=== PATIENT | male | born 1995 | race Caucasian/White ===

== ENCOUNTER 2018-06-15 02:01 | Inpatient (IN) ==
[2018-06-15] MEDS ORDERED: Aluminum/Magnesium/Simethacone Susp 30 ML UDC PO PRN (03:12)
[2018-06-15] MEDS ORDERED: Melatonin 5 MG Tablet PO PRN (03:12)
[2018-06-15] MEDS ORDERED: Benztropine Inj 2 MG/2 ML Ampul IM PRN (03:12)
[2018-06-15] MEDS ORDERED: Acetaminophen 325 MG Tablet PO PRN (03:12)
[2018-06-15] MEDS ORDERED: LORazepam 1 MG Tablet PO PRN (14:16)
[2018-06-15] MEDS: FLUoxetine 20 MG Capsule PO SCH (15:03)
--- NOTE | 2018-06-15 16:47 | XR ---
EXAM DATE: 06/15/2018 4:18 PM EDT AGE/SEX: 22 years / Male INDICATIONS: Cough and congestion. CLINICAL DATA: This is the patient's initial encounter. Patient reports that signs and symptoms have been present for 3 days and indicates a pain score of 0/10. MEDICAL/SURGICAL HISTORY: None. None. COMPARISON: No prior exams available for comparison. FINDINGS: Portable AP view of the chest demonstrates a normal-sized cardiac silhouette. No effusion, consolidat ion, or pneumothorax is identified. The bones and soft tissues demonstrate no acute finding. CONCLUSION: No acute cardiopulmonary abnormality is identified. Electronically signed by: Dada Link MD 06/15/2018 4:46 PM EDT
[2018-06-15] MEDS ORDERED: guaiFENesin/Codeine Syrup 200 MG/20 MG 10 ML UDC PO PRN (17:00)
--- NOTE | 2018-06-15 17:37 | P.CON ---
History of Present Illness Service: [facility] Consult date: 06/15/18 Requesting Physician: Ke Erazo Reason for Consult: Cough, runny nose Primary Care Provider: No Primary Care Physician Chief Complaint: Cough, runny nose History of Present Illness: Patient is a 22-year-old white with PMHx of ADHD, bipolar disorder, multiple psychiatric admissions, one previous suicide attempt, hypothyroidism, asthma as a child. Presented initially to [facility] emergency room for suicidal ideation. He was transferred here for inpatient psychiatric admission under [place] Act. Pt. voiced suicidal ideation with plans to buy a gun and shoot himself in the context of psychosocial stressors. Patient indicates that he is on medications at home, does not follow with psychiatry as outpatient. He is complaining of a stuffy nose, cough, no fever no chills. Indicates cough is dry, no sputum. Denies any wheezing. Indicates he had asthma as a child that resolved. No chest pain. Chest x-ray was ordered that did not reveal any acute findings. Laboratory workup is currently pending. Patient denies any history of tobacco abuse, uses marijuana occasionally but he has not used in the last 3 months. Hospitalist services are requested for medical management. Review of Systems All other systems reviewed negative except as stated in [facility] - Medical History Medical History: Medical History (Last Updated 06/15/18 @ 17:48 by ZORAN De La Paz) ADHD Asthma Bipolar disorder Depression Hypothyroid - Surgical History Surgical History: Surgical History (Last Updated 06/15/18 @ 17:48 by ZORAN De La Paz) No history of previous surgery - Family History Family History: Family History (Last Updated 06/15/18 @ 17:49 by ZORAN De La Paz) Mother Depression - Social History I have reviewed the patient's Social History: Yes - Tobacco History Second Hand Smoke Exposure: No Tobacco Use In Past 30 Days: No Smoking Status: Never smoker - Alcohol History How Often Do You Have a Drink Containing Alcohol: Monthly or less - Substance Use History Substance History: Past History (smokes marihuana occ. last time 3 months ago) - Travel History Recent Travel in the USA Within the Last 8 Weeks: No Recent Travel Out of the Country Within the Last 8 Weeks: No - Immunization History Tetanus Immunization: Unsure Hx Influenza Vaccine This Season: No Medications and Allergies Active Medications: Active Medications Acetaminophen (Tylenol) 650 mg PO Q4H PRN PRN Reason: Pain 1-5 or Temp >101F Al Hydrox/Mg Hydrox/Simethicone (Mag-Al Plus Susp Liq) 30 ml PO Q6H PRN PRN Reason: DYSPEPSIA Al Hydroxide/Mg Hydroxide (Milk Of Magnesia Liq) 30 ml PO Q12H PRN PRN Reason: Mild Constipation Benztropine Mesylate (Cogentin) 1 mg PO Q12H PRN PRN Reason: EXTRA PYRAMIDAL SYMPTOMS Benztropine Mesylate (Cogentin Inj) 1 mg IM Q12H PRN PRN Reason: EXTRA PYRAMIDAL SYMPTOMS Fluoxetine HCl (Prozac) 20 mg PO DAILY [facility] Last Admin: 06/15/18 15:03 Dose: 20 mg Guaifenesin/Codeine Phosphate (Robitussin Ac 200/20 Mg/10 Ml Liq) 10 ml PO Q4H PRN PRN Reason: COUGH Lorazepam (Ativan) 1 mg PO Q6H PRN PRN Reason: ANXIETY Nicotine (Habitrol 21 Mg Patch.24 Hr) 1 patch T-DERMAL DAILY PRN PRN Reason: Nicotine craving Olanzapine (Zyprexa Zydis Odt) 5 mg PO HS [facility]GRA Patch Removal (Remove Old Patch) 1 each T-DERMAL DAILY [facility] Last Admin: 06/15/18 10:37 Dose: Not Given Trazodone HCl (Desyrel) 50 mg PO HS PRN PRN Reason: INSOMNIA Allergies Allergy/AdvReac Type Severity Reaction Status Date / Time divalproex sodium AdvReac Lethargy Verified 06/15/18 03:54 [From [facility]] Physical Exam Vital signs: Vital Signs 06/15/18 02:55 Temperature 98.3 F Pulse Rate 100 H Respiratory Rate 18 Blood Pressure 100/59 L Pulse Oximetry 99 Intake & Output 06/14/18 06/15/18 06/15/18 18:59 06:59 18:59 Weight 70.8 kg Other: Weight On Admission 70.8 kg Narrative: GENERAL: Well-nourished, well-developed patient in no apparent distress. SKIN: Warm and dry. HEAD: Atraumatic. Normocephalic. EYES: Pupils equal and round. No scleral icterus. Mild conjunctival injection. ENT: No nasal bleeding or discharge. Mucous membranes moist. NECK: Trachea midline. No JVD. CARDIOVASCULAR: Regular rate and rhythm. RESPIRATORY: No accessory muscle use. Clear to auscultation. Breath sounds equal bilaterally. Dry cough, non productive GASTROINTESTINAL: Abdomen soft, non-tender, nondistended. Hepatic and splenic margins not palpable. MUSCULOSKELETAL: Extremities without clubbing, cyanosis, or edema. No obvious deformities. NEUROLOGICAL: Awake and alert. No obvious cranial nerve deficits. Motor grossly within normal limits. Five out of 5 muscle strength in the arms and legs. Normal speech. PSYCHIATRIC: depressed affect Assessment and Plan - Plan 22 year old male admitted to psych for suicidal ideation with plans to buy a gun. Complaining of runny nose, cough, no sputum. No fever, no chills. C/O runny nose, + cough, nasal pressure. Possible allergic rhinitis -Flonase 2 puffs daily -Robitussin PRN -Add Zyrtec 10 mg po daily -CXR reviewed by me, no acute findings -CBC and BMP pending Suicidal ideation Depression Bipolar disorder -psychiatry following, he has been started on treatment Hypothyroid -resume home meds when medications reconciled. Will follow up on labs. Plan of care discussed with RN, pt. Thank you for allowing to participate in the care of this patient.
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
[2018-06-15] MEDS ORDERED: traZODone 50 MG Tablet PO PRN (21:00)
[2018-06-16 08:49] LABS: Calcium 8.7 mg/dL (8.5-10.1); Carbon Dioxide 30.1 meq/L (21.0-32.0)
[2018-06-16 08:52] LABS: Chol/HDL Ratio 2.64 Ratio; HDL Cholesterol 41.2 mg/dL (40.0-60.0)
[2018-06-16] MEDS: FLUoxetine 20 MG Capsule PO SCH (09:24)
[2018-06-16 11:58] LABS: Hemoglobin A1c 5.4 % (4.3-6.0)
--- NOTE | 2018-06-16 14:59 | P.PNPSY ---
Subjective Remarks: Pt seen and discussed with staff. He was admitted for depression and SI. He remains depressed and yesterday SI persisted. He reports today that SI has remitted. Staff report that pt continues to irrationally blame himself for his girlfriend's miscarriage.He has been isolative to his room for most of the day. Mental Status Examination Appearance: Appropriate Consciousness: Alert Orientation: Person, Place, Date/Time Motor Activity: Normal gait Speech: Unremarkable Language: Adequate Fund of Knowledge: Inadequate Attention and Concentration: Adequate Memory: Unremarkable Mood: Sad Affect: Sad Thought Process & Associations: Intact, Linear Thought Content: Other (guilt) Hallucination Type: None Delusion Type: None Suicidal Ideation: No (denies today) Suicidal Plan: No Suicidal Intention: No Homicidal Ideation: No Homicidal Plan: No Homicidal Intention: No Insight: Fair Judgment: Impulsive Assessment and Plan - Assessment (1) Bipolar disorder with current episode depressed Code(s): F31.30 - Bipolar disorder, current episode depressed, mild or moderate severity, unspecified Status: Acute - Plan Plan: Continue current tx plan Justification for Continued Inpatient Stay: risk of decompensation (1) Bipolar disorder with current episode depressed Qualifiers: Current episode severity: severe Psychotic features: without psychotic features Qualified Code(s): F31.4 - Bipolar disorder, current episode depressed , severe, without psychotic features
--- NOTE | 2018-06-16 15:44 | P.PN ---
Subjective Interval history: follow up for cough, runny nose: pt. states he feels better, less congestion, cough and runny nose. No fever. No wheezing, no cp, no sob. Remains depressed. States hx of hypothyroid but has not taken thyroid replacement in 15 years. Doesn't follow with PCP as OP. Physical Exam Vital signs: Vital Signs 06/15/18 17:54 06/16/18 05:50 Temperature 98.6 F 97.6 F Pulse Rate 88 66 Respiratory Rate 18 16 Blood Pressure 109/53 L 108/55 L Pulse Oximetry 97 98 Narrative: GENERAL: Well-nourished, well-developed patient in no apparent distress. SKIN: Warm and dry. HEAD: Atraumatic. Normocephalic. EYES: Pupils equal and round. No scleral icterus. Mild conjunctival injection. ENT: No nasal bleeding or discharge. Mucous membranes moist. NECK: Trachea midline. No JVD. CARDIOVASCULAR: Regular rate and rhythm. RESPIRATORY: No accessory muscle use. Clear to auscultation. Breath sounds equal bilaterally. Dry cough, non productive GASTROINTESTINAL: Abdomen soft, non-tender, nondistended. Hepatic and splenic margins not palpable. MUSCULOSKELETAL: Extremities without clubbing, cyanosis, or edema. No obvious deformities. NEUROLOGICAL: Awake and alert. No obvious cranial nerve deficits. Motor grossly within normal limits. Five out of 5 muscle strength in the arms and legs. Normal speech. PSYCHIATRIC: depressed affect Results - Labs CBC & Chem 7: 06/16/18 06:50 Laboratory Results - last 24 hr 06/16/18 06/16/18 06/16/18 06:50 06:50 06:50 Sodium 143 Potassium 4.0 Chloride 107 Carbon Dioxide 30.1 Anion Gap 6 BUN 13 Creatinine 1.18 Estimated GFR 76 L Random Glucose 81 Hemoglobin A1c 5.4 Calcium 8.7 Triglycerides 59 Cholesterol 109 L LDL Cholesterol, Calc 56 HDL Cholesterol 41.2 Cholesterol/HDL Ratio 2.64 TSH 0.660 - Imaging Impressions Chest X-Ray 06/15/18 00:00 CONCLUSION: No acute cardiopulmonary abnormality is identified. Assessment and Plan - Plan 22 year old male admitted to psych for suicidal ideation with plans to buy a gun. Complaining of runny nose, cough, no sputum. No fever, no chills. C/O runny nose, + cough, nasal pressure. Possible allergic rhinitis -Flonase 2 puffs daily -Robitussin PRN -Zyrtec 10 mg po daily -CXR reviewed by me, no acute findings -labs reviewed, stable. No leukocytosis Suicidal ideation Depression Bipolar disorder -psychiatry following, he has been started on treatment-Prozac, Zyprexa, Trazodone Hypothyroid states he has not taken any replacement in 15 years. -not on thyroid replacement -TSH level 0.66 Symptoms improving Need to f/u as OP with PCP Will sign off for now, reconsult if needed.
[2018-06-17] MEDS: FLUoxetine 20 MG Capsule PO SCH (08:32)
--- NOTE | 2018-06-17 13:41 | P.PNPSY ---
Subjective Remarks: Medical record reviewed and discussed with nursing staff. CLAUDETTE Redding and I met with patient in his room. He states that he has been sleeping well. His cold is improving. He started on Prozac. Denies SI/HI. Hospitalist has talked to him about his TSH = 0.660 Patient voices no concerns and feels that he is improving. Review of Systems All other systems reviewed negative except as stated in HPI Mental Status Examination Appearance: Appropriate Consciousness: Alert Orientation: Person, Place, Date/Time Motor Activity: Normal gait Speech: Unremarkable Language: Adequate Fund of Knowledge: Inadequate Attention and Concentration: Adequate Memory: Unremarkable Mood: Sad Affect: Sad Thought Process & Associations: Intact, Linear Thought Content: Other (guilt) Hallucination Type: None Delusion Type: None Suicidal Ideation: No (denies today) Suicidal Plan: No Suicidal Intention: No Homicidal Ideation: No Homicidal Plan: No Homicidal Intention: No Insight: Fair Judgment: Impulsive Assessment and Plan - Assessment (1) Bipolar disorder with current episode depressed Code(s): F31.30 - Bipolar disorder, current episode depressed, mild or moderate severity, unspecified Status: Acute - Plan Plan: Continue current tx plan Justification for Continued Inpatient Stay: Moving patient to a less restrictive environment may result in his decompensation. (1) Bipolar disorder with current episode depressed Qualifiers: Current episode severity: severe Psychotic features: without psychotic features Qualified Code(s): F31.4 - Bipolar disorder, current episode depressed , severe, without psychotic features
[2018-06-18] MEDS: FLUoxetine 20 MG Capsule PO SCH (08:27)
--- NOTE | 2018-06-18 10:03 | P.TTN ---
- Patient Problems Problems: 1. Discharge planning 2. Medication compliance 3. Knowledge deficit 4. Lack of coping skills - Progress Toward Goals Provider Present: Dr. Federico Erazo (Patient lives with his mother, apparently he got into an argument with his mother, endorsing suicidal ideations with a plan to commit suicide via self-inflicted gunshot, patient has been noncompliant with medications and needs to remain for further stabilization.) Psychiatric Counselors Present: Andrew Benton Jr., [facility] (Patient is new to this counselor, counselor will meet with the patient today to assess for progress on the unit and discuss discharge plan.) Group Spec/RT/OT/ACEVEDO Present: CURTIS Grider (Patient attends select groups) - Documentation Teaching Recipient: Patient
--- NOTE | 2018-06-18 23:02 | P.PNPSY ---
Subjective Remarks: Patient seen for follow, chart reviewed. Discussion nursing staff reported the patient has been not as depressed, denying any suicide ideations and compliant with treatment. Patient was found lying hospital bed noted B, cooperative. Patient states that his weekend felt long per that he went well. Patient reports decreased depressed mood, denying suicidal ideations. Patient states that this spoke with his mother yesterday which he states went well. Patient reports tolerating medications well. Patient plans on returning back to with her residence upon discharge. Review of Systems All other systems reviewed negative except as stated in HPI Mental Status Examination Appearance: Appropriate Consciousness: Alert Orientation: Person, Place, Date/Time Motor Activity: Normal gait Speech: Unremarkable Language: Adequate Fund of Knowledge: Inadequate Attention and Concentration: Adequate Memory: Unremarkable Mood: Appropriate Affect: Appropriate Thought Process & Associations: Intact, Linear Thought Content: Appropriate Hallucination Type: None Delusion Type: None Suicidal Ideation: No (denies today) Suicidal Plan: No Suicidal Intention: No Homicidal Ideation: No Homicidal Plan: No Homicidal Intention: No Insight: Fair Judgment: Impulsive Assessment and Plan - Assessment (1) Bipolar disorder with current episode depressed Code(s): F31.30 - Bipolar disorder, current episode depressed, mild or moderate severity, unspecified Status: Acute - Plan Plan: Patient noted with improved mood, no longer endorsing suicidal ideations nor any perceptional disturbances. Patient tolerated medications well. We will continue current treatment. Continue to monitor mood and behavior. Collateral formation pending from patient's mother prior to discharge. Discharge planning a progress. Justification for Continued Inpatient Stay: At risk of further decompensation at lower level of care. (1) Bipolar disorder with current episode depressed Qualifiers: Current episode severity: severe Psychotic features: without psychotic features Qualified Code(s): F31.4 - Bipolar disorder, current episode depressed , severe, without psychotic features
[2018-06-19 05:39] VITALS: BP 105/54; PULSE 51; RESP 18; TEMP 97.4; O2SAT 97
[2018-06-19] MEDS: FLUoxetine 20 MG Capsule PO SCH (08:32)
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
== END 2018-06-19 13:40 | disposition home or self-care (01) ==
LOC: H270 02:55 → H260 06-18 15:41
PROVIDERS: ADMIT Student in an Organized Health Care Education/Training Program; ATTEND Student in an Organized Health Care Education/Training Program